=== PATIENT | male | born 1945 | race Caucasian/White ===

== ENCOUNTER 2022-10-21 06:00 | Day surgery (SDC) | payer OTHER ==
[~2022-10-21] VITALS: Ht 175.3 cm; Wt 81.6 kg
[~2022-10-21 06:00] MED LIST: ATORVASTATIN CA20 MG PO; COZAAR25 MG PO; FAMOT PO; LEVOTHYROXINE25 MCG PO
== END 2022-10-21 13:10 | disposition home or self-care (01) ==
LOC: CIR.AMB 06:00
PROVIDERS: ATTEND Surgery
DX: K40.90 Unilateral inguinal hernia, without obstruction or gangrene, not specified as recurrent (principal); Z20.822 Contact with and (suspected) exposure to COVID-19; I10 Essential (primary) hypertension; E78.5 Hyperlipidemia, unspecified; E03.9 Hypothyroidism, unspecified
CPT/HCPCS: 49650; C1781